=== PATIENT | male | born 1975 | race Caucasian/White ===

== ENCOUNTER 2017-01-03 12:10 | Emergency (ER) | payer OTHER ==
[2017-01-03 12:30] VITALS: BP 149/100
--- NOTE | 2017-01-03 13:17 | RAD ---
INDICATION: Right great toe injury. TECHNIQUE: 3 views of the right great toe were obtained. FINDINGS: The bones are in normal alignment. No fracture is seen. Joint spaces appear maintained. IMPRESSION: NO EVIDENCE FOR FRACTURE.
--- NOTE | 2017-01-03 13:20 | UC ---
Lower Extremity/Ankle HPI - HPI Summary HPI Summary: Patient presents s/p traumatic injury to the right great toe, he hurt it x 2 while playing soccer, he jammed it, was hit by another player. He complains of redness, pain and swelling. The pain is worse with walking, and improves when he rest it. He denies any foot, ankle or lower leg pain associated with his injury. He denies any numbness or tingling. Denies LOC. - History of Current Complaint Chief Complaint: UCLowerExtremity Stated Complaint: FOOT INJURY Time Seen by Provider: 01/03/17 12:39 Hx Obtained From: Patient Onset/Duration: Sudden Onset, Lasting Days Severity Initially: Moderate Severity Currently: Moderate Aggravating Factor(s): Standing, Ambulation Alleviating Factor(s): Rest, Elevation Able to Bear Weight: Yes Related History: Other - playing soccer - Risk Factors Gout Risk Factors: Negative DVT Risk Factors: Negative Septic Arthritis Risk Factor: Negative - Allergies/Home Medications Allergies/Adverse Reactions: Allergies Allergy/AdvReac Type Severity Reaction Status Date / Time No Known Allergies Allergy Verified 01/03/17 12:20 Home Medications: Home Medications Clomipramine HCl [Anafranil] 50 mg PO 01/03/17 [History] Sertraline HCl [Zoloft] 300 mg PO 01/03/17 [History] PMH/Surg Hx/FS Hx/Imm Hx Previously Healthy: Yes - Surgical History Surgical History: Yes Surgery Procedure, Year, and Place: L knee 2001 - Family History Known Family History: Positive: Cardiac Disease, Other - cva pericarditis rheumatic fever - Social History Lives: With Family Alcohol Use: Rare Substance Use Type: None Smoking Status (MU): Never Smoked Tobacco Review of Systems Constitutional: Negative - right great toe pain with extension reported. Skin: Negative Eyes: Negative ENT: Negative Respiratory: Negative Cardiovascular: Negative Gastrointestinal: Negative Genitourinary: Negative Motor: Negative Neurovascular: Negative Musculoskeletal: Decreased ROM, Edema, Myalgia, Other: All Other Systems Reviewed And Are Negative: Yes Physical Exam Triage Information Reviewed: Yes Vital Signs: Initial Vital Signs Temp 98.4 F 01/03/17 12:21 Pulse 82 01/03/17 12:21 Resp 16 01/03/17 12:21 BP 149/100 01/03/17 12:21 Pulse Ox 100 01/03/17 12:21 Eye Exam: Normal ENT Exam: Normal Neck exam: Normal Neck: Positive: 1 Respiratory Exam: Normal Cardiovascular Exam: Normal Abdominal Exam: Normal Musculoskeletal: Positive: Strength Limited @, ROM Limited @, Edema @, Other: - right great toe, inspection, edema and erythma noted distal MIP joint to distal aspect, palpaion, tenderness on palpation. ROM, flexion and extension of 50% with pain reported on extension. Vasc, PP+ cap reill less than three seconds. Neuro, intact no deficits. Skin Exam: Normal Lower Extremity Course/Dx - Course Course Of Treatment: Patient presents s/p trauma to the right great toe, xrays were negative, discussed with the patient. He was encouraged to rest, elevate, NSAIDS for pain. Good support shoes and avoid any other activity that could result is additional trauma. He presents clincially with a sprian toe. If for any reason his symptoms persist beyond one week to follow up with orthpedist. - Differential Dx/Diagnosis Differential Diagnosis/HQI/PQRI: Sprain, Strain Provider Diagnoses: sprain toe Discharge - Discharge Plan Condition: Stable Disposition: HOME Patient Education Materials: Sprain (ED) Referrals: Cristobal Lester MD [Medical Doctor] - Ginny Vasquez NP [Primary Care Provider] - Additional Instructions: If your symptoms persist more than one week follow up with the orthopedist as you may require additional imaging.
== END 2017-01-03 13:41 | disposition home or self-care (01) ==
LOC: UCEAST 12:10
DX: S93.501A Unspecified sprain of right great toe, initial encounter (principal); W21.9XXA Striking against or struck by unspecified sports equipment, initial encounter; Y93.66 Activity, soccer; Y92.9 Unspecified place or not applicable
CPT/HCPCS: 99211; G0463

== ENCOUNTER 2017-11-26 21:41 | Emergency (ER) | payer OTHER ==
[2017-11-26] MEDS ORDERED: Tetan/Diph/Pertus SYR(Tdap)* 0.5 ML SYR(BOOSTRIX) use SYR IM ONE ×2 (21:57→21:58)
[2017-11-26] MEDS ORDERED: Cephalexin CAP* 500 MG PO ONE (23:25)
--- NOTE | 2017-11-26 23:28 | ED ---
Laceration/Wound HPI - HPI Summary HPI Summary: Complains of laceration behind right ear after head did contact during a soccer game. Denies LOC, OLIVA, N/V, vision change, focal deficits, neck pain, oral trauma. Bleeding controlled. Medical history is none. - History of Current Complaint Stated Complaint: HEAD INJURY Time Seen by Provider: 11/26/17 22:11 Hx Obtained From: Patient Mechanism of Injury: Sharp/Blunt Trauma Aggravating: Nothing Alleviating: Nothing Onset Severity: Mild Current Severity: Mild Pain Intensity: 3 Pain Scale Used: 0-10 Numeric Associated Signs & Symptoms: Negative - Allergy/Home Medications Allergies/Adverse Reactions: Allergies Allergy/AdvReac Type Severity Reaction Status Date / Time No Known Allergies Allergy Verified 11/26/17 21:56 PMH/Surg Hx/FS Hx/Imm Hx Endocrine/Hematology History: Denies: Hx Anticoagulant Therapy Cardiovascular History: Denies: Hx Cardiac Arrest History: Denies: Hx Dialysis Neurological History: Denies: Hx CVA - Surgical History Surgery Procedure, Year, and Place: L knee 2001 Infectious Disease History: No Infectious Disease History: Denies: Traveled Outside the [place] in Last 30 Days - Family History Known Family History: Positive: Cardiac Disease, Other - cva pericarditis rheumatic fever - Social History Alcohol Use: Rare Substance Use Type: Reports: None Smoking Status (MU): Never Smoked Tobacco Review of Systems Constitutional: Negative Eyes: Negative ENT: Negative Cardiovascular: Negative Respiratory: Negative Gastrointestinal: Negative Genitourinary: Negative Musculoskeletal: Negative Skin: Other Neurological: Negative Psychological: Normal All Other Systems Reviewed And Are Negative: Yes Physical Exam - Summary Physical Exam Summary: Laceration behind right ear. No erythema, deformity, swelling, ecchymosis, foreign body noted. Body of ear intact Triage Information Reviewed: Yes Vital Signs On Initial Exam: Initial Vitals Temp Pulse Resp BP Pulse Ox 97.8 F 90 16 170/90 98 11/26/17 21:44 11/26/17 21:44 11/26/17 21:44 11/26/17 21:44 11/26/17 21:44 Vital Signs Reviewed: Yes Appearance: Positive: Well-Appearing Skin: Positive: Warm Head/Face: Positive: Normal Head/Face Inspection Eyes: Positive: Normal Neck: Positive: Supple Respiratory/Lung Sounds: Positive: Clear to Auscultation Cardiovascular: Positive: Normal Abdomen Description: Positive: Nontender Musculoskeletal: Positive: Normal Neurological: Positive: Normal Psychiatric: Positive: Normal AVPU Assessment: Alert - Geraldo Coma Scale Best Eye Response: 4 - Spontaneous Best Motor Response: 6 - Obeys Commands Best Verbal Response: 5 - Oriented Coma Scale Total: 15 Procedures - Laceration/Wound Repair 1 Location: face Description: Linear Anesthesia: Local, 1.0% Length, Depth and Shape: 4cm x 0.5cm behind right ear Betadine Prep?: No - chlorhexidine prep Irrigated w/ Saline (ccs): 20 - saline plus chlorhexidine Laceration/Wound Explored: clean Debridement: minimal Number of Sutures: 5 - 6.0 ethilon Layer Closure?: No Diagnostics - Vital Signs Vital Signs Temp Pulse Resp BP Pulse Ox 11/26/17 21:44 97.8 F 90 16 170/90 98 - Laboratory Lab Statement: Any lab studies that have been ordered have been reviewed, and results considered in the medical decision making process. Laceration Repair Course/Dx - Course Course Of Treatment: Complains of laceration behind right ear after head did contact during a soccer game. Denies LOC, OLIVA, N/V, vision change, focal deficits, neck pain, oral trauma. Bleeding controlled. Medical history is none. Physical exam:Laceration behind right ear. No erythema, deformity, swelling, ecchymosis, foreign body noted. Body of ear intact. Unsutured. Patient started on Keflex. Rx for same. - Clinical Impression Provider Diagnoses: Laceration Discharge - Sign-Out/Discharge Documenting (check all that apply): Patient Departure - Discharge Plan Condition: Stable Disposition: HOME Prescriptions: Cephalexin CAP* [Keflex CAP*] 500 mg PO TID 5 Days #15 cap Patient Education Materials: Care For Your Stitches (ED), Facial Laceration (ED ) Referrals: Ginny Vasquez NP [Nurse Practitioner] - Additional Instructions: Sutures out in 5 days. May wash with warm running water and soap. Do not submerge. Take antibiotics as directed. Return for any new or worsening symptoms. - Billing Disposition and Condition Condition: STABLE Disposition: Home
[2017-11-27 00:11] VITALS: BP 156/111
== END 2017-11-27 00:08 | disposition home or self-care (01) ==
LOC: ED 21:41
DX: S01.311A Laceration without foreign body of right ear, initial encounter (principal); Y93.66 Activity, soccer; Y92.39 Other specified sports and athletic area as the place of occurrence of the external cause; Z23 Encounter for immunization
CPT/HCPCS: 12013; 90471; 90715; 99282